=== PATIENT | female | born 1975 | race Caucasian/White ===

== ENCOUNTER 2020-11-26 13:27 | Outpatient (CLI) | payer BC, SELFPAY ==
--- NOTE | 2020-11-26 13:10 | DI.RAD_ITS ---
EXAM: XR HAND LT COMPLETE CLINICAL HISTORY: LT FINGER PAIN, M79.645. TECHNIQUE: 2D digital imaging was performed. COMPARISON: No exams were available for comparison FINDINGS: BONES: There is a minimally displaced fracture involving the volar aspect of the base of the middle p halanx of the left middle finger. There is associated soft tissue swelling. No bony destructive les ion is seen. JOINTS: No dislocation present. SOFT TISSUE: Soft tissue swelling of the middle finger. IMPRESSION: There is a mildly displaced fracture involving the volar aspect of the base of the middle phalanx of the left middle finger with associated soft tissue swelling. DATA REPOSITORY: RADIATION DOSE DELIVERED:
== END 2020-11-26 13:47 ==
PROVIDERS: PCP Family Medicine; Visit Provider Family Medicine
DX: M79.645 Pain in left finger(s) (principal); S62.623A Displaced fracture of middle phalanx of left middle finger, initial encounter for closed fracture
CPT/HCPCS: 73130

== ENCOUNTER 2020-12-05 03:45 | Outpatient (CLI) | payer BC, SELFPAY ==
--- NOTE | 2020-12-05 08:06 | DI.RAD_ITS ---
EXAM: XR HAND LT COMPLETE CLINICAL HISTORY: LT FINGER PAIN, M79.645, F/U RECHECK. TECHNIQUE: 2D digital imaging was performed. COMPARISON: CR XR HAND LT COMPLETE from 11/26/2020 FINDINGS: Fracture fragments are again noted adjacent to the volar base of the middle phalanx of the index fing er. No new abnormalities are seen. DATA REPOSITORY: RADIATION DOSE DELIVERED:
== END 2020-12-05 04:05 ==
PROVIDERS: PCP Family Medicine; Visit Provider Family Medicine
DX: M79.645 Pain in left finger(s) (principal); S62.623D Displaced fracture of middle phalanx of left middle finger, subsequent encounter for fracture with routine healing
CPT/HCPCS: 73130

== ENCOUNTER 2024-07-16 01:08 | Outpatient (CLI) | payer BC, SELFPAY ==
--- NOTE | 2024-07-16 14:15 | DI.RAD_ITS ---
Exam(s) XR ANKLE LT COMPLETE EXAM: XR ANKLE LT COMPLETE CLINICAL HISTORY: Left ankle pain,m25.572. TECHNIQUE: 2D digital imaging was performed. COMPARISON: No exams were available for comparison FINDINGS: 3 views No evidence of fracture nor widening of the ankle mortise. Talar dome unremarkable. There are no ob vious degenerative changes in the tibiotalar and subtalar joints. Large inferior calcaneal spur is n oted. Bone density is normal. No osseous lesions. IMPRESSION: No significant osseous findings in the ankle. No obvious soft tissue swelling. DATA REPOSITORY: RADIATION DOSE DELIVERED:
--- NOTE | 2024-07-16 14:16 | DI.RAD_ITS ---
Exam(s) XR FOOT LT COMPLETE EXAM: XR FOOT LT COMPLETE CLINICAL HISTORY: Left foot pain,m79.672. TECHNIQUE: 2D digital imaging was performed. Three views. COMPARISON: No exams were available for comparison FINDINGS: BONES: No acute fracture is present. No bony destructive lesion is seen. Plantar calcaneal spur. S mall ossicle at lateral to cuboid. JOINTS: No dislocation present. No significant degenerative changes. SOFT TISSUE: Normal. IMPRESSION: Plantar calcaneal spur. DATA REPOSITORY: RADIATION DOSE DELIVERED:
== END 2024-07-16 01:28 ==
LOC: DI 01:08
PROVIDERS: PCP Family Medicine; Visit Provider Podiatrist
DX: M25.572 Pain in left ankle and joints of left foot
CPT/HCPCS: 73610; 73630

== ENCOUNTER 2024-08-03 00:36 | Outpatient (CLI) | payer BC, SELFPAY ==
--- NOTE | 2024-08-03 07:15 | DI.MRI_ITS ---
Exam(s) MR LOWER JOINT LT WO/W EXAM: MR LOWER JOINT LT WO/W CLINICAL HISTORY: Lateral malleolus pain,sclerotic line above fib notch painful,h/o fx TECHNIQUE: Multiplanar multisequence MRI was performed without intravenous contrast. COMPARISON: CR XR ANKLE LT COMPLETE from 07/16/2024 FINDINGS: BONES/JOINTS: No fracture or contusion pattern. Prominent plantar calcaneal spur was some surrounding edema and enhancement.. The talar dome is smooth. Ossicle the noted posterior to talus. There is some fluid around this area. No suspicious lesion in distal fibula The ankle mortise is maintained. A small tibiotalar joint effusion is present. LIGAMENTS: The posterior calcaneofibular ligament is somewhat indistinct and there is surrounding flu id. This could represent a sprain. The tibiofibular ligaments are intact. The talofibular ligaments are intact. The deltoid ligament is intact. The syndesmosis is unremarkable. Sinus tarsi is normal. MUSCULOTENDINOUS STRUCTURES: Achilles tendon: Unremarkable. Plantar fascia: Heel spur. Surrounding edema and enhancement. No visible tear. Anterior Extensor tendons: Unremarkable. Posterior Tibialis: Unremarkable. Flexor Digitorum longus: Unremarkable. Flexor Hallucis longus: Unremarkable. Peroneus longus: Unremarkable. Peroneus brevis:Split peroneus brevis tendon at the level posterior to the lateral malleolus. High s ignal also present in this location. There is some surrounding enhancement following IV gadolinium i ndicating a degree of inflammation. SOFT TISSUES: Unremarkable. IMPRESSION: Prominent heel spur and plantar fasciitis. Split peroneus brevis tendon behind the lateral malleolus. 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 DATA REPOSITORY:
[2024-08-03] MEDS: Normal Saline Flush 10 ML SYR IVP (14:07)
[2024-08-03] MEDS: Gadoterate meglumine 20 ML SYRINGE 14 ML IVP (14:08)
== END 2024-08-03 00:56 ==
LOC: DI 00:36
PROVIDERS: PCP Family Medicine; Visit Provider Podiatrist
DX: M77.32 Calcaneal spur, left foot (principal)
CPT/HCPCS: 73723